=== PATIENT | female | born 1970 | race Caucasian/White ===

== ENCOUNTER 2017-02-26 07:11 | Inpatient (IN) | payer MEDICARE, MEDICAID ==
[~2017-02-26] VITALS: Ht 175.3 cm; Wt 89.0 kg
[2017-02-26 07:12] VITALS: BP 124/57
[2017-02-26] MEDS ORDERED: BENZTROPINE1 MG PO (08:02)
[2017-02-26] MEDS ORDERED: ATIVAN1 MG PO (08:03)
[2017-02-26] MEDS ORDERED: LITHIUM CARBON450 M1 PO (08:03)
[2017-02-26] MEDS ORDERED: OXCARBAZEPINE600 M1 PO (08:06)
[2017-02-26] MEDS ORDERED: OLANZAPINE20 MG PO (08:06)
[2017-02-26] MEDS ORDERED: PERPHENAZINE4 MG PO (08:07)
--- NOTE | 2017-02-26 08:15 | Emergency Room Report ---
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 STAFF THERE AT [facility] STATED THAT PT WAS FOUND ON THE FLOOR, STATES PT GOT HERSELF UP FROM THE FLOOR, STATED PT HAS BEEN MORE CONFUSED THAN NORMAL SINCE INCIDENT. PUPILS ARE EQUAL AND REACTIVE TO LIGHT BUT SLUGGISH. 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 N Clinical Suspician of Infection? N Mental Status: 2 - Mildly Altered Sepsis Risk:LOW SEPSIS RISK Have you (or family members/close friends) recently traveled outside the [place]? N If Yes, where/when: Have you had exposure to infectious disease within the past month? N TB? Other? Specify: Source patient, RN notes reviewed Exam Limitations no limitations Comment Pt brought to the ED from the [facility] where she has been a resident for about 2 years for Bipolar Disorder, Schizo-affective disorder and ? Dementia. This morning she had an unwitnessed fall and brought to the hospital for disorientation and further evaluation. Glucose by EMS=99 and she is not a diabetic Cardiac Chest Pain Chest pain indicative of cardiac No ALLERGIES Coded Allergies: No Known Allergies (02/26/17) Home Medications Reported Medications BENZTROPINE MESYLATE (Benztropine 1MG Tab) 1 MG PO BID [place] Carbonate ([place] Carbonate ER) 450 MG PO BID Lorazepam (Ativan 1MG) 1 MG PO TID Olanzapine (Olanzapine 5MG Tab) 10 MG PO BID Oxcarbazepine 600 MG PO TID Perphenazine 4 MG PO BID History Medical History General CAD? No Angina: No AL: No Hypertension? No Anxiety? Yes Depression? Yes More? 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 Musculoskeletal see HPI Psychiatric/Neurological see HPI Physical Exam Vital Signs Vital Signs Date Time Temp Pulse Resp B/P Pulse O2 O2 Flow FiO2 Ox Delivery Rate 02/26 1133 97.5 69 20 123/54 97 02/26 1101 69 20 109/72 97 02/26 1031 67 20 105/57 97 02/26 0950 79 20 140/70 98 / 0924 98.1 68 20 98/49 100 02/26 0855 95.7 64 20 118/62 99 02/26 0840 68 20 120/91 100 / 0748 61 20 129/77 95 02/26 0712 97.4 58 20 124/57 100 General Appearance no apparent distress, lethargic Eye Exam - bilateral eye PERRL Respiratory Status No: respiratory distress. Lung Sounds bilateral: normal breath sounds. Cardiovascular normal exam, regular rate/rhythm Neurologic confusion and disorientation Medical Decision Making LABS/Meds/Orders Pt receiving controlled substance in ED? No Results/Orders Laboratory Tests 02/26/17 1125: Stl Cyclospora species Pending, Stool Rotavirus (PCR) Pending, Stool Campylobacter PCR Pending, Stool Giardia Lamblia PCR Pending, Stl Norovirus GI/ GII PCR Pending, Adenovirus (PCR) Pending, C. difficile Tox (PCR) Pending, E. coli (PCR) Pending, Yersinia (PCR) Pending 02/26/17 0845: Urine Color DK YELLOW, Urine Appearance CLEAR, Urine pH 5.5, Ur Specific [place] 1.010, Urine Protein TRACE H, Urine Ketones NEGATIVE, Urine Blood NEGATIVE, Urine Nitrate NEGATIVE, Urine Bilirubin NEGATIVE, Urine Urobilinogen 2.0, Ur Leukocyte Esterase TRACE H, Urine RBC OCC, Urine WBC 5-10, Ur Squamous Epith Cells 3-5, Urine Bacteria 2+, Urine Mucus OCC, Urine Glucose NEGATIVE 02/26/17 0825: Lactic Acid 1.2 02/26/17 0825: Sodium 136, Potassium 4.4, Chloride 102, Carbon Dioxide 24, BUN 13, Creatinine 0.7, Estimated Creat Clear 178, Estimated GFR (MDRD) 90, Glucose 118 H, Calcium 8.7, Total Bilirubin 0.3, AST 12 L, ALT 22, Alkaline Phosphatase 100, Total Protein 7.2, Albumin 3.5, Globulin 3.7 H, Albumin/Globulin Ratio 0.9 L, WBC 8.2, RBC 3.91 L, Hgb 12.5, Hct 37.6, MCV 96.0, RDW 12.3, Plt Count 206, MPV 6.2 L, Gran % 85.5 H, Gran # 7.0, Total Counted 100, Lymphocytes % 10.8, Monocytes % 3.6, Eosinophils % 0.1, Basophils % 0.1, Neutrophils 89 H, Lymphocytes ( Manual) 9 L, Lymphocytes # 0.9, Monocytes (Manual) 2, Monocytes # 0.3, Eosinophils # 0.0, Basophils # 0.0, Platelet Estimate NORMAL, PUBS MCHC 33.4, MCH 32.0 H, [place] Pending 02/26/17 0744: POC Glucose 86 Current Medication Orders Sig/Noemi Start time Last Medication Dose Route Stop Time Status Admin Ceftriaxone Sodium 0 .STK-MED ONE 02/26 1146 DC IV Sodium Chloride 50 ML .STK-MED ONE 02/26 1146 DC IV Ceftriaxone Sodium 1 GM ONCE ONE 02/26 1130 DC 02/26 Sodium Chloride 50 ML IV 02/26 1159 1150 Sodium Chloride 1,000 ML .Q1H1M 02/26 1100 DC 02/26 IV 02/26 1200 1054 Sodium Chloride 10 ML PRN PRN 02/26 1100 AC IV 02/27 1050 Sodium Chloride 1,000 ML .STK-MED ONE 02/26 1052 DC IV Sodium Chloride 1,000 ML .Q1H1M 02/26 0815 DC 02/26 IV 02/26 0915 0833 Sodium Chloride 10 ML PRN PRN 02/26 0815 AC IV 02/27 0809 Sodium Chloride 10 ML PRN PRN 02/26 0800 AC IV 02/27 0750 Orders Procedure Date/time Status DIET-NOTHING BY MOUTH 02/26 B Active Decision to admit 02/26 1157 Active DIARRHEA PANEL, PCR 02/26 1120 Active CULTURE, URINE 02/26 0845 Active DIFFERENTIAL-WBC 02/26 0825 Complete CHEST-PORTABLE 02/26 0809 Active LITHIUM 02/26 0809 Active LACTIC ACID 02/26 0809 Complete IV SALINE LOCK 02/26 0750 Active URINALYSIS/COMPLETE 02/26 0750 Complete CBC WITH AUTO DIFF 02/26 0750 Complete CHEM 12 PROFILE 02/26 0750 Complete FINGERSTICK BLOOD SUGAR 02/[address] HEAD W/O CONTRAST 02/[address] HEAD REQ 02/26 0713 Complete Departure Departure Time of Disposition 1201 Disposition Still a Patient Clinical Impression Primary Impression: UTI (urinary tract infection) Qualifiers: Urinary tract infection type: acute cystitis Hematuria presence: without hematuria Qualified Code: N30.00 - Acute cystitis without hematuria Secondary Impressions: Bipolar 1 disorder Confusion Schizoaffective disorder Qualifiers: Schizoaffective disorder type: bipolar Qualified Code: F25.0 - Schizoaffective disorder, bipolar type Condition STABLE Referrals Ana Maria MCHUGH,Camilo Maradiaga (Family) Additional Instructions Admitted to OBS to Dr. Rodgers with Dr. Arnold covering Discharge Counseling Counseled pt/family regarding diagnosis, test results, follow up needs ED Critical Care Critical Care No If Critical Care minutes are documented, the time involved in the performance of seperately reportable procedures was not counted toward critical care time documented. I directly delivered medical care to this critically ill and/or injured patient. Timely evaluation and treatment was necessary to address the significant organ system(s) dysfunction present in this patient. at 1203
--- NOTE | 2017-02-26 08:15 | Emergency Room Report ---
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 STAFF THERE AT [facility] STATED THAT PT WAS FOUND ON THE FLOOR, STATES PT GOT HERSELF UP FROM THE FLOOR, STATED PT HAS BEEN MORE CONFUSED THAN NORMAL SINCE INCIDENT. PUPILS ARE EQUAL AND REACTIVE TO LIGHT BUT SLUGGISH. 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 N Clinical Suspician of Infection? N Mental Status: 2 - Mildly Altered Sepsis Risk:LOW SEPSIS RISK Have you (or family members/close friends) recently traveled outside the [place]? N If Yes, where/when: Have you had exposure to infectious disease within the past month? N TB? Other? Specify: Source patient, RN notes reviewed Exam Limitations no limitations Comment Pt brought to the ED from the [facility] where she has been a resident for about 2 years for Bipolar Disorder, Schizo-affective disorder and ? Dementia. This morning she had an unwitnessed fall and brought to the hospital for disorientation and further evaluation. Glucose by EMS=99 and she is not a diabetic Cardiac Chest Pain Chest pain indicative of cardiac No ALLERGIES Coded Allergies: No Known Allergies (02/26/17) Home Medications Reported Medications BENZTROPINE MESYLATE (Benztropine 1MG Tab) 1 MG PO BID [place] Carbonate ([place] Carbonate ER) 450 MG PO BID Lorazepam (Ativan 1MG) 1 MG PO TID Olanzapine (Olanzapine 5MG Tab) 10 MG PO BID Oxcarbazepine 600 MG PO TID Perphenazine 4 MG PO BID History Medical History General CAD? No Angina: No NH: No Hypertension? No Anxiety? Yes Depression? Yes More? 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 Musculoskeletal see HPI Psychiatric/Neurological see HPI Physical Exam Vital Signs Vital Signs Date Time Temp Pulse Resp B/P Pulse O2 O2 Flow FiO2 Ox Delivery Rate 02/26 1133 97.5 69 20 123/54 97 02/26 1101 69 20 109/72 97 02/26 1031 67 20 105/57 97 02/26 0950 79 20 140/70 98 / 0924 98.1 68 20 98/49 100 02/26 0855 95.7 64 20 118/62 99 02/26 0840 68 20 120/91 100 / 0748 61 20 129/77 95 02/26 0712 97.4 58 20 124/57 100 General Appearance no apparent distress, lethargic Eye Exam - bilateral eye PERRL Respiratory Status No: respiratory distress. Lung Sounds bilateral: normal breath sounds. Cardiovascular normal exam, regular rate/rhythm Neurologic confusion and disorientation Medical Decision Making LABS/Meds/Orders Pt receiving controlled substance in ED? No Results/Orders Laboratory Tests 02/26/17 1125: Stl Cyclospora species Pending, Stool Rotavirus (PCR) Pending, Stool Campylobacter PCR Pending, Stool Giardia Lamblia PCR Pending, Stl Norovirus GI/ GII PCR Pending, Adenovirus (PCR) Pending, C. difficile Tox (PCR) Pending, E. coli (PCR) Pending, Yersinia (PCR) Pending 02/26/17 0845: Urine Color DK YELLOW, Urine Appearance CLEAR, Urine pH 5.5, Ur Specific [place] 1.010, Urine Protein TRACE H, Urine Ketones NEGATIVE, Urine Blood NEGATIVE, Urine Nitrate NEGATIVE, Urine Bilirubin NEGATIVE, Urine Urobilinogen 2.0, Ur Leukocyte Esterase TRACE H, Urine RBC OCC, Urine WBC 5-10, Ur Squamous Epith Cells 3-5, Urine Bacteria 2+, Urine Mucus OCC, Urine Glucose NEGATIVE 02/26/17 0825: Lactic Acid 1.2 02/26/17 0825: Sodium 136, Potassium 4.4, Chloride 102, Carbon Dioxide 24, BUN 13, Creatinine 0.7, Estimated Creat Clear 178, Estimated GFR (MDRD) 90, Glucose 118 H, Calcium 8.7, Total Bilirubin 0.3, AST 12 L, ALT 22, Alkaline Phosphatase 100, Total Protein 7.2, Albumin 3.5, Globulin 3.7 H, Albumin/Globulin Ratio 0.9 L, WBC 8.2, RBC 3.91 L, Hgb 12.5, Hct 37.6, MCV 96.0, RDW 12.3, Plt Count 206, MPV 6.2 L, Gran % 85.5 H, Gran # 7.0, Total Counted 100, Lymphocytes % 10.8, Monocytes % 3.6, Eosinophils % 0.1, Basophils % 0.1, Neutrophils 89 H, Lymphocytes ( Manual) 9 L, Lymphocytes # 0.9, Monocytes (Manual) 2, Monocytes # 0.3, Eosinophils # 0.0, Basophils # 0.0, Platelet Estimate NORMAL, PUBS MCHC 33.4, MCH 32.0 H, [place] Pending 02/26/17 0744: POC Glucose 86 Current Medication Orders Sig/Noemi Start time Last Medication Dose Route Stop Time Status Admin Ceftriaxone Sodium 0 .STK-MED ONE 02/26 1146 DC IV Sodium Chloride 50 ML .STK-MED ONE 02/26 1146 DC IV Ceftriaxone Sodium 1 GM ONCE ONE 02/26 1130 DC 02/26 Sodium Chloride 50 ML IV 02/26 1159 1150 Sodium Chloride 1,000 ML .Q1H1M 02/26 1100 DC 02/26 IV 02/26 1200 1054 Sodium Chloride 10 ML PRN PRN 02/26 1100 AC IV 02/27 1050 Sodium Chloride 1,000 ML .STK-MED ONE 02/26 1052 DC IV Sodium Chloride 1,000 ML .Q1H1M 02/26 0815 DC 02/26 IV 02/26 0915 0833 Sodium Chloride 10 ML PRN PRN 02/26 0815 AC IV 02/27 0809 Sodium Chloride 10 ML PRN PRN 02/26 0800 AC IV 02/27 0750 Orders Procedure Date/time Status DIET-NOTHING BY MOUTH 02/26 B Active Decision to admit 02/26 1157 Active DIARRHEA PANEL, PCR 02/26 1120 Active CULTURE, URINE 02/26 0845 Active DIFFERENTIAL-WBC 02/26 0825 Complete CHEST-PORTABLE 02/26 0809 Active LITHIUM 02/26 0809 Active LACTIC ACID 02/26 0809 Complete IV SALINE LOCK 02/26 0750 Active URINALYSIS/COMPLETE 02/26 0750 Complete CBC WITH AUTO DIFF 02/26 0750 Complete CHEM 12 PROFILE 02/26 0750 Complete FINGERSTICK BLOOD SUGAR 02/[address] HEAD W/O CONTRAST 02/[address] HEAD REQ 02/26 0713 Complete Departure Departure Time of Disposition 1201 Disposition Still a Patient Clinical Impression Primary Impression: UTI (urinary tract infection) Qualifiers: Urinary tract infection type: acute cystitis Hematuria presence: without hematuria Qualified Code: N30.00 - Acute cystitis without hematuria Secondary Impressions: Bipolar 1 disorder Confusion Schizoaffective disorder Qualifiers: Schizoaffective disorder type: bipolar Qualified Code: F25.0 - Schizoaffective disorder, bipolar type Condition STABLE Referrals Ana Maria MCHUGH,Camilo Maradiaga (Family) Additional Instructions Admitted to OBS to Dr. Rodgers with Dr. Arnold covering Discharge Counseling Counseled pt/family regarding diagnosis, test results, follow up needs ED Critical Care Critical Care No If Critical Care minutes are documented, the time involved in the performance of seperately reportable procedures was not counted toward critical care time documented. I directly delivered medical care to this critically ill and/or injured patient. Timely evaluation and treatment was necessary to address the significant organ system(s) dysfunction present in this patient. at 1203
[2017-02-26 08:32] LABS: HEMOGLOBIN 12.5 g/dL (12.2-16.2); LYMPH # 0.9 K/mm3 (0.7-4.5); LYMPH % 10.8 % (10-50.0)
[2017-02-26 08:55] LABS: NEUTROPHILS 89 % (42-76)
[2017-02-26 09:01] LABS: URINE BILIRUBIN - DIPSTICK NEGATIVE (NEG); URINE BLOOD NEGATIVE (NEG)
[2017-02-26 11:31] LABS: AEROMONAS NOT DETECTED (NOT DETECTE); ASTROVIRUS NOT DETECTED (NOT DETECTE); CYCLOSPORA CAYETANENSIS NOT DETECTED (NOT DETECTE); E COLI O157 NOT DETECTED (NOT DETECTE); ENTEROAGGREGATIVE E COLI NOT DETECTED (NOT DETECTE); ENTEROPATHOGENIC E COLI NOT DETECTED (NOT DETECTE); ENTEROTOXIGENIC E COLI NOT DETECTED (NOT DETECTE); NOROVIRUS NOT DETECTED (NOT DETECTE); SAPOVIRUS NOT DETECTED (NOT DETECTE); SHIGA-LIKE TOXIN PROD. E COLI NOT DETECTED (NOT DETECTE); SHIGELLA/ENTEROINVASIVE E COLI NOT DETECTED (NOT DETECTE); VIBRIO CHOLERAE NOT DETECTED (NOT DETECTE)
--- NOTE | 2017-02-26 13:57 | PHARMACY CLINIC NOTE ---
Patient Demographics Patient Demographics Admission date: 02/26/17 Date: 02/26/17 Time: 1356 Allergies Coded Allergies: No Known Allergies (02/26/17) HEIGHT- FT: 5 IN: 9.00 K.400 VTE General Information Labs: Laboratory Tests 02/26 0825 Hematology Hgb (12.2 - 16.2 g/dL) 12.5 Hct (37.0 - 47.0 %) 37.6 Plt Count (142 - 424 K/mm3) 206 Disclaimer The following section includes nursing documentation that has been pulled in for pharmacy review. VTE prophylaxis [id number] VTE prophylaxis ordered? Yes Type of prophylaxis/treatment: JUAREZ at 2030
--- NOTE | 2017-02-26 14:13 | RADIOLOGY REPORT PS360 ---
CT HEAD W/O CONTRAST COMPARISON: None HISTORY: Unwitnessed fall now having mental confusion TECHNIQUE: Multiple axial scans obtained from base skull to the vertex and were performed without IV contrast. FINDINGS: The base of skull is normal except for minimal mucoperiosteal thickening left maxillary sinus. Mastoids are clear. The ventricular system is normal. There is no definite ischemic infarct or bleed and there are no extra-axial fluid collections. There is only mild cortical atrophy. Bony calvarium appears intact showing evidence of hyperostosis frontalis interna. IMPRESSION: Negative for acute intracranial pathology
--- NOTE | 2017-02-26 14:14 | RADIOLOGY REPORT PS360 ---
CHEST-PORTABLE COMPARISON: None HISTORY: Shortness of breath TECHNIQUE: Portable upright chest FINDINGS: The support structure effort resulting in crowding the vascular markings at the lung bases. There is mild generalized cardio megaly. There is no definite pneumonic infiltrate seen and there is no pleural fluid. IMPRESSION: Poor aspiration with mild generalized cardio megaly, no definite acute chest pathology seen
[2017-02-26 14:42] VITALS: BP 120/62
[2017-02-26 15:43] VITALS: BP 118/78
[2017-02-26 16:00] VITALS: BP 134/70
[2017-02-26 19:23] VITALS: BP 106/60
[2017-02-26 23:29] VITALS: BP 117/75
[2017-02-27] VITALS (7 sets, daily range): BP systolic 99–144; BP diastolic 47–68
[2017-02-27 06:45] LABS: HEMOGLOBIN 11.4 g/dL (12.2-16.2); LYMPH # 0.8 K/mm3 (0.7-4.5); LYMPH % 11.5 % (10-50.0)
--- NOTE | 2017-02-27 09:18 | HISTORY AND PHYSICAL REPORT ---
History and Physical (FCA) Date of admission: 02/26/17 Chief complaint: Ms Rodriguez is a 46 year old female who is a resident of the [facility] with a history of Schizophrenia who experienced an unwitnessed fall and was disoriented. She was brought to [facility] via ambulance for for further evaluation. She was then admitted with confusion and UTI. This AM patient is unable to relate most of the events of yesterday. She states she did fall but does not know what made her fall. She denies CP and SOB. She does not recall being sick. Past Medical History: Medical History: CAD? No Angina: No PA: No Hypertension? No Hyperlipidemia? No CHF? No DVT? No PE? No COPD? No Asthma? No Anemia? No GERD? No Gastric ulcers? No GI Bleed? No Hernia? No Thyroid Problems? No Hypothyroidism? No CVA? No Seizures? No Diabetes? No Renal Insuffiency? No UTI? Yes Stones? No BPH? No GB Disease: No Nephritic Syndrome? No Asplenia? No Hepatitis? No Sickle Cell Disease? No Arthritis? No Migraines? No Cataracts? No Glaucoma? No MRSA? No HIV? No TB? No Anxiety? Yes Depression? Yes Cancer? No More? Yes Additional hx: BIPOLAR SCHIZOAFFECTIVE, SUBSTANCE ABUSE ALCOHOL ABUSE, MAJOR DEPRESSION, DEMENTIA WITH DELIRIUM Surgical history: Previous Surgery?Y "STERILIZATION" Medications: Reported Medications BENZTROPINE MESYLATE (Benztropine 1MG Tab) 1 MG PO BID [place] Carbonate ([place] Carbonate ER) 450 MG PO BID Lorazepam (Ativan 1MG) 1 MG PO TID Olanzapine 10 MG PO BID Oxcarbazepine 600 MG PO TID Perphenazine 4 MG PO BID Allergies: Coded Allergies: No Known Allergies (02/26/17) Family History: Family history: Postive for: unknown. Social History: Smoking Hx Tobacco: No Smoker: Former Smoker Type: Cigarettes Packs/day: < 1 Pack Are you exposed to second hand Yes Alcohol: Alcohol: No Hx of Drug Use: Drug Use? No Review of Systems: ENT No: sore throat. Cardiovascular No: chest pain, edema. Respiratory No: shortness of air, non-productive. GI No: abdominal pain, diarrhea, hematochezia, nausea, vomitting. (female) No: hematuria. Musculoskeletal No: extremity pain, joint pain. Psychiatric Positive for: confused, depression, change in mental status. Physical Exam: Vital signs: 1ST Vital Signs Result Date Time Pulse Ox 100 02/27 712 B/P 124/57 02/27 712 Temp 97.4 02/26 07 Pulse 58 02/26 07 Resp 20 02/26 07 O2 Delivery ROOM AIR 02/26 1442 Exam: General appearance: alert, active, no acute distress, speech is clear Eyes: anicteric ENT: mucous membranes moist Cardiovascular: regular rate & rhythm Respiratory: crackles on the right ABD: non-distended, soft, no tenderness, bowel sounds present Extremities: no peripheral edema, no calf tenderness Lab data: Labs: Laboratory Tests 02/27/17 0605: Sodium 136, Potassium 3.8, Chloride 105, Carbon Dioxide 23, BUN 7, Creatinine 0.6, Estimated Creat Clear 163, Estimated GFR (MDRD) 107, Glucose 107 H, Calcium 8.4 L, WBC 7.4, RBC 3.59 L, Hgb 11.4 L, Hct 34.2 L, MCV 95.1, RDW 12.3, Plt Count 219, MPV 6.0 L, Gran % 82.6 H, Gran # 6.1, Lymphocytes % 11.5, Monocytes % 5.6, Eosinophils % 0.3, Basophils % 0.1, Lymphocytes # 0.8, Monocytes # 0.4, Eosinophils # 0.0, Basophils # 0.0, PUBS MCHC 33.5, MCH 31.8 H 02/26/17 1125: Stl Cyclospora species NOT DETECTED, Stool Rotavirus (PCR) NOT DETECTED, Stool Campylobacter PCR NOT DETECTED, Stool Giardia Lamblia PCR NOT DETECTED, Stl Norovirus GI/GII PCR NOT DETECTED, Adenovirus (PCR) NOT DETECTED, C. difficile Tox (PCR) DETECTED H, E. coli (PCR) NOT DETECTED, Yersinia (PCR) NOT DETECTED Radiology results: Results: 02/26/17 CT of head IMPRESSION: Negative for acute intracranial pathology 02/26/17 CXR IMPRESSION: Poor aspiration with mild generalized cardio megaly, no definite acute chest pathology seen Diagnosis(es): 1. Schizoaffective disorder 2. UTI (urinary tract infection) 3. Confusion 4. Clostridium difficile colitis Plan: As per orders; continue with ABX; regular meds have been ordered (Noreen Erwin APRN) Date of admission: 02/26/17 Diagnosis(es): 1. Schizoaffective disorder 2. UTI (urinary tract infection) 3. Confusion 4. Clostridium difficile colitis Plan: Pt seen and examined. Concur with above assessment and plan. (Camilo Rodgers MD) at 0922 at [id number]
--- NOTE | 2017-02-27 09:18 | HISTORY AND PHYSICAL REPORT ---
History and Physical (FCA) Date of admission: 02/26/17 Chief complaint: Ms Rodriguez is a 46 year old female who is a resident of the [facility] with a history of Schizophrenia who experienced an unwitnessed fall and was disoriented. She was brought to [facility] via ambulance for for further evaluation. She was then admitted with confusion and UTI. This AM patient is unable to relate most of the events of yesterday. She states she did fall but does not know what made her fall. She denies CP and SOB. She does not recall being sick. Past Medical History: Medical History: CAD? No Angina: No AK: No Hypertension? No Hyperlipidemia? No CHF? No DVT? No PE? No COPD? No Asthma? No Anemia? No GERD? No Gastric ulcers? No GI Bleed? No Hernia? No Thyroid Problems? No Hypothyroidism? No CVA? No Seizures? No Diabetes? No Renal Insuffiency? No UTI? Yes Stones? No BPH? No GB Disease: No Nephritic Syndrome? No Asplenia? No Hepatitis? No Sickle Cell Disease? No Arthritis? No Migraines? No Cataracts? No Glaucoma? No MRSA? No HIV? No TB? No Anxiety? Yes Depression? Yes Cancer? No More? Yes Additional hx: BIPOLAR SCHIZOAFFECTIVE, SUBSTANCE ABUSE ALCOHOL ABUSE, MAJOR DEPRESSION, DEMENTIA WITH DELIRIUM Surgical history: Previous Surgery?Y "STERILIZATION" Medications: Reported Medications BENZTROPINE MESYLATE (Benztropine 1MG Tab) 1 MG PO BID [place] Carbonate ([place]an Carbonate ER) 450 MG PO BID Lorazepam (Ativan 1MG) 1 MG PO TID Olanzapine 10 MG PO BID Oxcarbazepine 600 MG PO TID Perphenazine 4 MG PO BID Allergies: Coded Allergies: No Known Allergies (02/26/17) Family History: Family history: Postive for: unknown. Social History: Smoking Hx Tobacco: No Smoker: Former Smoker Type: Cigarettes Packs/day: < 1 Pack Are you exposed to second hand Yes Alcohol: Alcohol: No Hx of Drug Use: Drug Use? No Review of Systems: ENT No: sore throat. Cardiovascular No: chest pain, edema. Respiratory No: shortness of air, non-productive. GI No: abdominal pain, diarrhea, hematochezia, nausea, vomitting. (female) No: hematuria. Musculoskeletal No: extremity pain, joint pain. Psychiatric Positive for: confused, depression, change in mental status. Physical Exam: Vital signs: 1ST Vital Signs Result Date Time Pulse Ox 100 02/27 712 B/P 124/57 02/27 712 Temp 97.4 02/26 07 Pulse 58 02/26 07 Resp 20 02/26 07 O2 Delivery ROOM AIR 02/26 1442 Exam: General appearance: alert, active, no acute distress, speech is clear Eyes: anicteric ENT: mucous membranes moist Cardiovascular: regular rate & rhythm Respiratory: crackles on the right ABD: non-distended, soft, no tenderness, bowel sounds present Extremities: no peripheral edema, no calf tenderness Lab data: Labs: Laboratory Tests 02/27/17 0605: Sodium 136, Potassium 3.8, Chloride 105, Carbon Dioxide 23, BUN 7, Creatinine 0.6, Estimated Creat Clear 163, Estimated GFR (MDRD) 107, Glucose 107 H, Calcium 8.4 L, WBC 7.4, RBC 3.59 L, Hgb 11.4 L, Hct 34.2 L, MCV 95.1, RDW 12.3, Plt Count 219, MPV 6.0 L, Gran % 82.6 H, Gran # 6.1, Lymphocytes % 11.5, Monocytes % 5.6, Eosinophils % 0.3, Basophils % 0.1, Lymphocytes # 0.8, Monocytes # 0.4, Eosinophils # 0.0, Basophils # 0.0, PUBS MCHC 33.5, MCH 31.8 H 02/26/17 1125: Stl Cyclospora species NOT DETECTED, Stool Rotavirus (PCR) NOT DETECTED, Stool Campylobacter PCR NOT DETECTED, Stool Giardia Lamblia PCR NOT DETECTED, Stl Norovirus GI/GII PCR NOT DETECTED, Adenovirus (PCR) NOT DETECTED, C. difficile Tox (PCR) DETECTED H, E. coli (PCR) NOT DETECTED, Yersinia (PCR) NOT DETECTED Radiology results: Results: 02/26/17 CT of head IMPRESSION: Negative for acute intracranial pathology 02/26/17 CXR IMPRESSION: Poor aspiration with mild generalized cardio megaly, no definite acute chest pathology seen Diagnosis(es): 1. Schizoaffective disorder 2. UTI (urinary tract infection) 3. Confusion 4. Clostridium difficile colitis Plan: As per orders; continue with ABX; regular meds have been ordered (Noreen Erwin APRN) Date of admission: 02/26/17 Diagnosis(es): 1. Schizoaffective disorder 2. UTI (urinary tract infection) 3. Confusion 4. Clostridium difficile colitis Plan: Pt seen and examined. Concur with above assessment and plan. (Camilo Rodgers MD) at 0922 at [phone]
--- NOTE | 2017-02-27 16:18 | RADIOLOGY REPORT PS360 ---
CHEST(2 VIEWS-NOT PORTABLE) Ordering Physician: Camilo Rodgers MD Patient Age: 46 years: Female HISTORY: SOAshort of breath. Dyspnea.. TECHNIQUE: 2 view chest radiograph Patient had difficulty following instructions. Difficult exam FINDINGS Today's study is compared to 02/26/2017. The lungs appear better expanded and clear today than on yesterday's exam. No focal pneumonia. Question some mild central airway inflammatory changes with slight coarsening of central markings. No pleural effusion. No pneumothorax. Heart appears upper normal in size. The lamonte and mediastinal structures unremarkable. IMPRESSION: . No focal pneumonia. Nothing definitely acute Better inspiration than yesterday's study. . Central markings upper normal likely reflecting chronic changes
[2017-02-28] VITALS (7 sets, daily range): BP systolic 99–136; BP diastolic 56–78
--- NOTE | 2017-02-28 08:02 | ACUTE CARE PROGRESS NOTE (QUA) ---
Progress Notes Subjective Date 02/28/17 Time 0753 Note per nursing: period of poor response yesterday; afternoon meds held; was her usual self last night; low BP noted. Several stools yesterday and one during the night; initially incontinent but then also goes to the bathroom. Denies abdominal pain; eating and drinking without problems. Patient denies pain and SOB; she thinks she is having less stools; discusses the personal shelter Objective Findings Vital Signs Date Time Temp Pulse Resp B/P Pulse O2 O2 Flow FiO2 Ox Delivery Rate 02/28 0744 97.9 79 20 119/74 98 ROOM AIR 02/28 0528 97.7 57 20 130/77 100 ROOM AIR 02/28 0026 97.7 64 20 99/63 99 ROOM AIR 02/27 2054 98.0 59 20 123/63 100 02/27 2049 20 02/27 1936 98.0 59 20 123/63 100 ROOM AIR 02/27 1642 98.0 71 20 144/58 97 ROOM AIR 02/27 1213 97.1 69 20 119/68 98 ROOM AIR 02/27 0901 97.4 75 20 103/51 99 02/27 0857 20 02/27 0844 97.4 75 20 103/51 99 Current Medications Lorazepam 0 .STK-MED ONE .ROUTE (DC) Ceftriaxone Sodium 1 GM DAILY IV Sodium Chloride 50 ML Lorazepam 0 .STK-MED ONE .ROUTE (DC) Metronidazole 250 MG TID PO [place] Carbonate 300 MG TID PO Lorazepam 1 MG TID PO Oxcarbazepine 600 MG TID PO Sodium Chloride 10 ML PRN PRN IV Perphenazine 4 MG BID PO Olanzapine 10 MG BID PO Acetaminophen 650 MG Q4HP PRN PO Benztropine Mesylate 1 MG BID PO Ibuprofen 600 MG Q8HP PRN PO Nicotine 21 MG DAILYP PRN TD Ondansetron HCl 4 MG Q6HP PRN IV Promethazine HCl 25 MG Q4HP PRN IV Sodium Chloride 1,000 ML .Q8H IV Sodium Chloride 25 ML PRN PRN IV Sodium Chloride 10 ML PRN PRN IV (DC) 02/27 1500 02/27 2300 02/28 0700 Intake Total 420 1730 1922 Output Total Balance 420 1730 1922 Intake, IV 1550 1082 Intake, Oral 420 180 840 Output, Stool Patient 196 lb Weight Last VS-Temp:97.9 B/P:119/74 Pulse:79 Resp:20 SaO2:98 ROOM AIR Last weight lbs:196 oz:3 K.990 Method:Bed Scales Exam General appearance: alert, active, no acute distress Cardiovascular: regular rate & rhythm, monitor showing SR with occasional PVC Respiratory: clear to auscultation (bilat anterior and posterior) ABD: soft, no tenderness, bowel sounds present Extremities: no peripheral edema, no calf tenderness Neuro: alert, speech clear, seems partially oriented; has to be redirected with conversation Assessment/Plan Problem List 1. Schizoaffective disorder 2. UTI (urinary tract infection) 3. Confusion 4. Clostridium difficile colitis Patient condition Improving Plan: continue current care, saline lock; will discuss meds with Dr. Rodgers with reference to the hypotension and AMS yesterday This inpt stay is expected to cross 2 MNs from start of care Yes (Noreen Erwin APRN) Subjective Date 02/28/17 Time 0838 Assessment/Plan Problem List 1. Schizoaffective disorder 2. UTI (urinary tract infection) 3. Confusion 4. Clostridium difficile colitis 5. Cardiomegaly Plan: Pt seen and examined. No further spells of unresponsiveness since yesterday afternoon. VSS. Will check echo due to cardiomegaly noted on CXR. (Camilo Rodgers MD) at 0802 at 0839
--- NOTE | 2017-02-28 15:05 | RADIOLOGY REPORT PS360 ---
PROCEDURE: 2-D M-mode and color Doppler study INDICATIONS FOR THE TEST: Chest pain COPD Heart Murmur Tobacco SmokingEX Palpitations Fatigue Syncope Edema Hypertension Diabetes Mellitus Rheumatic Fever SOB MONTES Obesity Hyperlipidemia Family History HD Additional History ALTERED MENTAL STATUS,HYPOTENSION PATIENT INFORMATION HEIGHT: 69 WEIGHT:196 GENDER: Female B/P:124/57 2-D/M-MODE INTERPRETATION: 2-D MEASUREMENTS OBSERVED VALUES IN CMS Right Ventricular Dimension (RVDd) 1.3 Interventricular Septum (Thickness)(IVsd) 1.5 Left Ventricular Internal Dimensions(LVIDd) 3.9 Left Ventricular Posterior Wall (Thickness)(LVPWd) 1.4 Aortic Root 2.1 Aortic Cusp Separation 2.1 Left Atrial Dimensions (LAD) 4.0 2D 1. Left atrium is mildly enlarged, left ventricle is normal size, there is mild concentric left ventricular hypertrophy, visually estimated ejection fraction 55% with no obvious regional wall motion abnormality. 2. The right atrium and right ventricle are normal size and contractility. 3. The aortic valve is minimally thickened and fibrosed. 4. The mitral and tricuspid valve is structurally normal. 5. The pulmonic valve is not well visualized. 6. No significant pericardial effusion noted. DOPPLER INTERROGATION: Doppler interrogation of the aortic mitral and tricuspid presence of mild mitral and tricuspid regurgitation, tricuspid regurgitant jet velocity insufficient for calculation of the right ventricular systolic pressure. Diastolic parameters are inconclusive. CONCLUSION: 1. Normal left ventricular size, mild concentric left ventricular hypertrophy, visually estimated to fraction 55% with no obvious regional wall motion abnormality. 2. Mild mitral and tricuspid regurgitation. 3. No significant pericardial effusion noted.
[2017-03-01 04:00] VITALS: BP 110/70
[2017-03-01 07:46] VITALS: BP 104/70
--- NOTE | 2017-03-01 08:06 | ACUTE CARE PROGRESS NOTE (QUA) ---
Progress Notes Subjective Date 03/01/17 Time 0756 Note Awakened for exam. Denies any problems. States her bowels have not moved. Up to the bathroom to void several times. Eating without problems. per nursing: no further known stools; patient does go to bathroom independently Objective Findings Vital Signs Date Time Temp Pulse Resp B/P Pulse O2 O2 Flow FiO2 Ox Delivery Rate 03/01 0746 98.1 58 18 104/70 98 ROOM AIR 03/01 0400 98.0 58 20 110/70 100 ROOM AIR 02/28 2107 20 02/28 2054 97.6 60 20 112/56 100 02/28 1931 97.6 60 20 112/56 100 ROOM AIR 02/28 1615 98.3 58 20 136/78 100 ROOM AIR 02/28 1330 20 02/28 0925 20 02/28 0918 97.9 79 20 119/74 98 Current Medications Lorazepam 0 .STK-MED ONE .ROUTE (DC) Lorazepam 0 .STK-MED ONE .ROUTE (DC) Lorazepam 0 .STK-MED ONE .ROUTE (DC) Sodium Chloride 10 ML PRN PRN IV Ceftriaxone Sodium 1 GM DAILY IV Sodium Chloride 50 ML Metronidazole 250 MG TID PO [place] Carbonate 300 MG TID PO Lorazepam 1 MG TID PO Oxcarbazepine 600 MG TID PO Sodium Chloride 10 ML PRN PRN IV Perphenazine 4 MG BID PO Olanzapine 10 MG BID PO Acetaminophen 650 MG Q4HP PRN PO Benztropine Mesylate 1 MG BID PO Ibuprofen 600 MG Q8HP PRN PO Nicotine 21 MG DAILYP PRN TD Ondansetron HCl 4 MG Q6HP PRN IV Promethazine HCl 25 MG Q4HP PRN IV Sodium Chloride 1,000 ML .Q8H IV (DC) Sodium Chloride 25 ML PRN PRN IV 02/28 1500 02/28 2300 03/01 0700 Intake Total 600 1440 Output Total Balance 600 1440 Intake, Oral 600 1440 Last VS-Temp:98.1 B/P:104/70 Pulse:58 Resp:18 SaO2:98 ROOM AIR Last weight lbs:196 oz:3 K.990 Method:Bed Scales ECHO 02/28/19 CONCLUSION: 1. Normal left ventricular size, mild concentric left ventricular hypertrophy, visually estimated to fraction 55% with no obvious regional wall motion abnormality. 2. Mild mitral and tricuspid regurgitation. 3. No significant pericardial effusion noted. Exam General appearance: alert, no acute distress, easily awakened for exam Cardiovascular: regular rate & rhythm, frequent premature beats Respiratory: clear to auscultation (bilat anterior and posterior) ABD: non-distended, soft, no tenderness, bowel sounds present Extremities: no peripheral edema Neuro: alert Assessment/Plan Problem List 1. Schizoaffective disorder 2. UTI (urinary tract infection) 3. Confusion 4. Clostridium difficile colitis 5. Cardiomegaly Patient condition Improved Plan: Probably back to [facility] today. Will continue with Flagyl This inpt stay is expected to cross 2 MNs from start of care No (Noreen Erwin APRN) Subjective Date 03/01/17 Time 0858 Assessment/Plan Problem List 1. Schizoaffective disorder 2. UTI (urinary tract infection) 3. Confusion 4. Clostridium difficile colitis 5. Cardiomegaly Plan: Pt seen and examined. Echo looks good. Urine culture with no growth. Will discharge to [facility] on Flagyl. (Camilo Rodgers MD) at 0805 at 0900
[2017-03-01 08:34] VITALS: BP 104/70
[2017-03-01] MEDS ORDERED: FLAGYL500 M1 PO (09:03)
[2017-03-01 15:34] VITALS: BP 104/70
--- NOTE | 2017-03-02 14:48 | DISCHARGE SUMMARY STANDARD ---
Discharge Summary (FCA2) Date of admission: 02/26/17 Date of discharge: 03/01/17 Problem List: 1. Schizoaffective disorder 2. UTI (urinary tract infection) 3. Confusion 4. Clostridium difficile colitis 5. Cardiomegaly History of present illness: Ms Rodriguez is a 46 year old female who is a resident of the [facility] with a history of Schizophrenia. She experienced an unwitnessed fall and was disoriented. She was brought to [facility] via ambulance for for further evaluation. She was then admitted with confusion and UTI. She was unable to relate most of the events. She stated she did fall but did not know what made her fall. She denied CP and SOB. She did not recall being sick. Exam on admission: General appearance: alert, active, no acute distress, speech is clear Eyes: anicteric ENT: mucous membranes moist Cardiovascular: regular rate & rhythm Respiratory: crackles on the right ABD: non-distended, soft, no tenderness, bowel sounds present Extremities: no peripheral edema, no calf tenderness Hospital Course: She was started on rocephin. A CXR and CT of the head both showed nothing acute. Her CXR did show some cardiomegaly, therefore an echo was ordered. It showed mild LVH and an EF of 55% with mild mitral and tricuspid regurgitation. She did have some loose stools and a stool test came back positive for C. Diff. She was started on flagyl. Her urine cx showed no growth and she was stable to be discharged back to the [facility] on flagyl. Discharge medications: Continue taking these medications: BENZTROPINE MESYLATE (Benztropine 1MG Tab) 1 MG TABLET 1 MILLIGRAM ORAL TWICE A DAY [place] Carbonate (Laurium Carbonate ER) 450 MG TABLET.ER 450 MILLIGRAM ORAL TWICE A DAY Lorazepam (Ativan 1MG) 1 MG TABLET 1 MILLIGRAM ORAL THREE TIMES A DAY Olanzapine (Olanzapine) 20 MG TABLET 10 MILLIGRAM ORAL TWICE A DAY Oxcarbazepine (Oxcarbazepine) 600 MG TABLET 600 MILLIGRAM ORAL THREE TIMES A DAY Perphenazine (Perphenazine) 4 MG TABLET 4 MILLIGRAM ORAL TWICE A DAY Start taking the following new medications: Metronidazole (Flagyl) 500 MG TABLET 500 MILLIGRAM ORAL THREE TIMES A DAY Qty = 24 No Refills Disposition: F/U with: Camilo Rodgers MD Follow up: 7 DAYS Activity: Cont Current activity Diet: Continue same diet Discharge to: PERSONAL HALFWAY Specify Personal Mcfp: [facility] at 0074
--- NOTE | 2017-03-02 14:48 | DISCHARGE SUMMARY STANDARD ---
Discharge Summary (FCA2) Date of admission: 02/26/17 Date of discharge: 03/01/17 Problem List: 1. Schizoaffective disorder 2. UTI (urinary tract infection) 3. Confusion 4. Clostridium difficile colitis 5. Cardiomegaly History of present illness: Ms Rodriguez is a 46 year old female who is a resident of the [facility] with a history of Schizophrenia. She experienced an unwitnessed fall and was disoriented. She was brought to [facility] via ambulance for for further evaluation. She was then admitted with confusion and UTI. She was unable to relate most of the events. She stated she did fall but did not know what made her fall. She denied CP and SOB. She did not recall being sick. Exam on admission: General appearance: alert, active, no acute distress, speech is clear Eyes: anicteric ENT: mucous membranes moist Cardiovascular: regular rate & rhythm Respiratory: crackles on the right ABD: non-distended, soft, no tenderness, bowel sounds present Extremities: no peripheral edema, no calf tenderness Hospital Course: She was started on rocephin. A CXR and CT of the head both showed nothing acute. Her CXR did show some cardiomegaly, therefore an echo was ordered. It showed mild LVH and an EF of 55% with mild mitral and tricuspid regurgitation. She did have some loose stools and a stool test came back positive for C. Diff. She was started on flagyl. Her urine cx showed no growth and she was stable to be discharged back to the [facility] on flagyl. Discharge medications: Continue taking these medications: BENZTROPINE MESYLATE (Benztropine 1MG Tab) 1 MG TABLET 1 MILLIGRAM ORAL TWICE A DAY [place] Carbonate ([place] Carbonate ER) 450 MG TABLET.ER 450 MILLIGRAM ORAL TWICE A DAY Lorazepam (Ativan 1MG) 1 MG TABLET 1 MILLIGRAM ORAL THREE TIMES A DAY Olanzapine (Olanzapine) 20 MG TABLET 10 MILLIGRAM ORAL TWICE A DAY Oxcarbazepine (Oxcarbazepine) 600 MG TABLET 600 MILLIGRAM ORAL THREE TIMES A DAY Perphenazine (Perphenazine) 4 MG TABLET 4 MILLIGRAM ORAL TWICE A DAY Start taking the following new medications: Metronidazole (Flagyl) 500 MG TABLET 500 MILLIGRAM ORAL THREE TIMES A DAY Qty = 24 No Refills Disposition: F/U with: Camilo Rodgers MD Follow up: 7 DAYS Activity: Cont Current activity Diet: Continue same diet Discharge to: PERSONAL ALF Specify Personal Shelter: [facility] at [phone]
== END 2017-03-01 15:28 | disposition home or self-care (01) | DRG 690 ==
LOC: ER 07:11 → 2ND 12:18 → ER 12:18 → 2ND 12:49
PROVIDERS: Emergency Medicine; General Practice
DX: N39.0 Urinary tract infection, site not specified (principal); A04.7 Enterocolitis due to Clostridium difficile; Z91.81 History of falling; Z87.891 Personal history of nicotine dependence; I51.7 Cardiomegaly; F25.0 Schizoaffective disorder, bipolar type

== ENCOUNTER 2017-10-21 12:49 | Emergency (ER) | payer MEDICAID ==
[~2017-10-21] VITALS: Ht 175.3 cm; Wt 88.9 kg
[~2017-10-21 12:49] MED LIST: ATIVAN1 MG PO; BENZTROPINE1 MG PO; FLAGYL500 M1 PO; LITHIUM CARBON450 M1 PO; OLANZAPINE20 MG PO; OXCARBAZEPINE600 M1 PO; PERPHENAZINE4 MG PO
--- NOTE | 2017-10-21 12:55 | Emergency Room Report ---
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 N Clinical Suspician of Infection? N Mental Status: 1 - Regular (Normal Baseline) Sepsis Risk:Low Sepsis Risk Have you (or family members/close friends) recently traveled outside the [place]? N If Yes, where/when: Have you had exposure to infectious disease within the past month? N TB? Other? Specify: Patient felt lightheaded and unwell today. Is in personal custodial. Has schizophrenia and bipolar, taking multiple medications, states she had a large BM on arrival and now feeling better and wants something to eat and something to drink. No fever. No chest pain. No new hallucinations. No palpitations. ALLERGIES Coded Allergies: No Known Allergies (02/26/17) Home Medications Reported Medications BENZTROPINE MESYLATE (Benztropine 1MG Tab) 1 MG PO BID Lorazepam (Ativan 1MG) 1 MG PO TID Olanzapine 10 MG PO BID Perphenazine 4 MG PO BID [place] Carbonate ([place] Carbonate ER) 450 MG PO QHS [place] Carbonate 300 MG PO DAILY Oxcarbazepine 300 MG PO TID Haloperidol (Haloperidol 5MG. Tablet) 5 MG PO TID History Medical History General CAD? No Angina: No [place]: No Hypertension? No Hyperlipidemia? No CHF? No DVT? No PE? No COPD? No Asthma? No Anemia? No GERD? No Gastric ulcers? No GI Bleed? No Hernia? No Thyroid Problems? No Hypothyroidism? No CVA? No Seizures? No Diabetes? No Renal Insuffiency? No End Stage Renal Disease? No UTI? Yes Stones? No BPH? No GB Disease: No Nephritic Syndrome? No Asplenia? No Hepatitis? No Sickle Cell Disease? No Arthritis? No Migraines? No Cataracts? No Glaucoma? No MRSA? No HIV? No TB? No Anxiety? Yes Depression? Yes Cancer? No More? 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/A Family History Family Hx Diabetes No CAD No Hypertension No Hyperlipidemia No Cancer No TB No Social History Smoking Hx Smoker: Former Smoker Tobacco: No Packs/day < 1 Pack Alcohol Alcohol: No Review of Systems All Other Systems Reviewed and Negative Gastrointestinal see HPI Psychiatric/Neurological denies see HPI, pre-existing deficit Physical Exam Vital Signs Vital Signs Date Time Temp Pulse Resp B/P Pulse O2 O2 Flow FiO2 Ox Delivery Rate 10/21 1408 97.6 57 18 101/43 100 10/21 1406 97.6 57 18 101/43 100 10/21 1249 97.6 62 18 93/57 100 General Appearance normal appearance, WD/WN, no apparent distress Eye Exam - bilateral eye normal exam, bilateral eye PERRL, bilateral eye EOMI Neck normal inspection, non-tender, supple, full range of motion Respiratory Status Yes: trachea midline, chest symmetrical, non tender chest. No: respiratory distress, tender on palpation, use of accessory muscles, pain on inspiration, pain on expiration, productive cough, non productive cough. Lung Sounds bilateral: normal breath sounds, lungs clear. Cardiovascular normal exam, regular rate/rhythm, no peripheral edema, no gallop, no JVD, no murmur, no rub, normal peripheral pulses Gastrointestinal normal bowel sounds, normal exam, non tender, soft, no organomegaly, no pulsatile mass, no guarding, no rebound Extremities non-tender, normal range of motion, normal inspection, normal capillary refill, no calf tenderness, no pedal edema Strength 5 Upper Ext (L), 5 Upper Ext (R), 5 Lower Ext (L), 5 Lower Ext (R) Neurologic alert, normal exam, no motor/sensory deficits, oriented x 3 (no tremor;slow speech/clear) Glascow Coma Scale Glascow Coma Scale Response Value EYE response: 4 Spontaneously 4 MOTOR response: 6 OBEYS 6 VERBAL response: 5 Oriented & Converses 5 Total 15 Skin intact, normal color, warm/dry Medical Decision Making LABS/Meds/Orders Pt receiving controlled substance in ED? No Results/Orders Laboratory Tests 10/21/17 1310: Sodium 126 L, Potassium 4.0, Chloride 94 L, Carbon Dioxide 24, BUN 12, Creatinine 0.7, Estimated Creat Clear 139, Estimated GFR (MDRD) 90, Glucose 108 H, Calcium 8.7, Total Bilirubin 0.5, AST 17, ALT 17, Alkaline Phosphatase 82, Total Protein 6.8, Albumin 3.6, Globulin 3.2, Albumin/Globulin Ratio 1.1, WBC 6.2, RBC 3.74 L, Hgb 11.5 L, Hct 35.0 L, MCV 93.4, RDW 12.4, Plt Count 164, MPV 8.2, Gran % 75.5, Gran # 4.7, Lymphocytes % 16.9, Monocytes % 6.7, Eosinophils % 0.7, Basophils % 0.2, Lymphocytes # 1.1, Monocytes # 0.4, Eosinophils # 0.0, Basophils # 0.0, PUBS MCHC 32.9, MCH 30.8, Superior Pending Current Medication Orders Sig/Noemi Start time Last Medication Dose Route Stop Time Status Admin Sodium Chloride 10 ML PRN PRN 10/21 1300 AC IV 10/22 1254 Orders Procedure Date/time Status 12 LEAD EKG-BRITTANY (INITIAL) 10/21 125 Active ELECTROCARDIOGRAM REQUEST 10/21 125 Active IV SALINE LOCK 10/21 125 Active SERUM , QUAL 10/21 1254 Complete LITHIUM 10/21 1254 Active CBC WITH AUTO DIFF 10/21 125 Complete CHEM 12 PROFILE 10/21 1254 Complete CM/EKG CM/EKG EKG rate, NSR, rhythm, no evid. of ischemic chgs, no ectopy, normal QRS, normal IN, normal EKG (NSR 88) Departure Departure Time of Disposition 1405 Disposition DC Home or Self Care(routine) Clinical Impression Primary Impression: Malaise Condition STABLE Patient Instructions Dizziness, Nonvertigo Additional Instructions continue current medications; lithium level is a sendout; follow up with primary care physician next week. You will be called if Superior level abnormal. Discharge Counseling Counseled pt/family regarding diagnosis, test results, medications/RX, home care, follow up needs ED Critical Care Critical Care No at 1410
--- NOTE | 2017-10-21 12:55 | Emergency Room Report ---
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 N Clinical Suspician of Infection? N Mental Status: 1 - Regular (Normal Baseline) Sepsis Risk:Low Sepsis Risk Have you (or family members/close friends) recently traveled outside the [place]? N If Yes, where/when: Have you had exposure to infectious disease within the past month? N TB? Other? Specify: Patient felt lightheaded and unwell today. Is in personal detention. Has schizophrenia and bipolar, taking multiple medications, states she had a large BM on arrival and now feeling better and wants something to eat and something to drink. No fever. No chest pain. No new hallucinations. No palpitations. ALLERGIES Coded Allergies: No Known Allergies (02/26/17) Home Medications Reported Medications BENZTROPINE MESYLATE (Benztropine 1MG Tab) 1 MG PO BID Lorazepam (Ativan 1MG) 1 MG PO TID Olanzapine 10 MG PO BID Perphenazine 4 MG PO BID Brenas Carbonate (Brenas Carbonate ER) 450 MG PO QHS Brenas Carbonate 300 MG PO DAILY Oxcarbazepine 300 MG PO TID Haloperidol (Haloperidol 5MG. Tablet) 5 MG PO TID History Medical History General CAD? No Angina: No [place]: No Hypertension? No Hyperlipidemia? No CHF? No DVT? No PE? No COPD? No Asthma? No Anemia? No GERD? No Gastric ulcers? No GI Bleed? No Hernia? No Thyroid Problems? No Hypothyroidism? No CVA? No Seizures? No Diabetes? No Renal Insuffiency? No End Stage Renal Disease? No UTI? Yes Stones? No BPH? No GB Disease: No Nephritic Syndrome? No Asplenia? No Hepatitis? No Sickle Cell Disease? No Arthritis? No Migraines? No Cataracts? No Glaucoma? No MRSA? No HIV? No TB? No Anxiety? Yes Depression? Yes Cancer? No More? 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 N/A Family History Family Hx Diabetes No CAD No Hypertension No Hyperlipidemia No Cancer No TB No Social History Smoking Hx Smoker: Former Smoker Tobacco: No Packs/day < 1 Pack Alcohol Alcohol: No Review of Systems All Other Systems Reviewed and Negative Gastrointestinal see HPI Psychiatric/Neurological denies see HPI, pre-existing deficit Physical Exam Vital Signs Vital Signs Date Time Temp Pulse Resp B/P Pulse O2 O2 Flow FiO2 Ox Delivery Rate 10/21 1408 97.6 57 18 101/43 100 10/21 1406 97.6 57 18 101/43 100 10/21 1249 97.6 62 18 93/57 100 General Appearance normal appearance, WD/WN, no apparent distress Eye Exam - bilateral eye normal exam, bilateral eye PERRL, bilateral eye EOMI Neck normal inspection, non-tender, supple, full range of motion Respiratory Status Yes: trachea midline, chest symmetrical, non tender chest. No: respiratory distress, tender on palpation, use of accessory muscles, pain on inspiration, pain on expiration, productive cough, non productive cough. Lung Sounds bilateral: normal breath sounds, lungs clear. Cardiovascular normal exam, regular rate/rhythm, no peripheral edema, no gallop, no JVD, no murmur, no rub, normal peripheral pulses Gastrointestinal normal bowel sounds, normal exam, non tender, soft, no organomegaly, no pulsatile mass, no guarding, no rebound Extremities non-tender, normal range of motion, normal inspection, normal capillary refill, no calf tenderness, no pedal edema Strength 5 Upper Ext (L), 5 Upper Ext (R), 5 Lower Ext (L), 5 Lower Ext (R) Neurologic alert, normal exam, no motor/sensory deficits, oriented x 3 (no tremor;slow speech/clear) Glascow Coma Scale Glascow Coma Scale Response Value EYE response: 4 Spontaneously 4 MOTOR response: 6 OBEYS 6 VERBAL response: 5 Oriented & Converses 5 Total 15 Skin intact, normal color, warm/dry Medical Decision Making LABS/Meds/Orders Pt receiving controlled substance in ED? No Results/Orders Laboratory Tests 10/21/17 1310: Sodium 126 L, Potassium 4.0, Chloride 94 L, Carbon Dioxide 24, BUN 12, Creatinine 0.7, Estimated Creat Clear 139, Estimated GFR (MDRD) 90, Glucose 108 H, Calcium 8.7, Total Bilirubin 0.5, AST 17, ALT 17, Alkaline Phosphatase 82, Total Protein 6.8, Albumin 3.6, Globulin 3.2, Albumin/Globulin Ratio 1.1, WBC 6.2, RBC 3.74 L, Hgb 11.5 L, Hct 35.0 L, MCV 93.4, RDW 12.4, Plt Count 164, MPV 8.2, Gran % 75.5, Gran # 4.7, Lymphocytes % 16.9, Monocytes % 6.7, Eosinophils % 0.7, Basophils % 0.2, Lymphocytes # 1.1, Monocytes # 0.4, Eosinophils # 0.0, Basophils # 0.0, PUBS MCHC 32.9, MCH 30.8, Brenas Pending Current Medication Orders Sig/Noemi Start time Last Medication Dose Route Stop Time Status Admin Sodium Chloride 10 ML PRN PRN 10/21 1300 AC IV 10/22 1254 Orders Procedure Date/time Status 12 LEAD EKG-BRITTANY (INITIAL) 10/21 125 Active ELECTROCARDIOGRAM REQUEST 10/21 125 Active IV SALINE LOCK 10/21 125 Active SERUM , QUAL 10/21 1254 Complete LITHIUM 10/21 1254 Active CBC WITH AUTO DIFF 10/21 125 Complete CHEM 12 PROFILE 10/21 1254 Complete CM/EKG CM/EKG EKG rate, NSR, rhythm, no evid. of ischemic chgs, no ectopy, normal QRS, normal NE, normal EKG (NSR 88) Departure Departure Time of Disposition 1405 Disposition DC Home or Self Care(routine) Clinical Impression Primary Impression: Malaise Condition STABLE Patient Instructions Dizziness, Nonvertigo Additional Instructions continue current medications; lithium level is a sendout; follow up with primary care physician next week. You will be called if Brenas level abnormal. Discharge Counseling Counseled pt/family regarding diagnosis, test results, medications/RX, home care, follow up needs ED Critical Care Critical Care No at 1410
[2017-10-21] MEDS ORDERED: LITHIUM CARBON300 MG PO (12:56)
[2017-10-21] MEDS ORDERED: OXCARBAZEPINE300 M2 PO ×2 (12:57→12:58)
[2017-10-21] MEDS ORDERED: HALOPERIDOL 5MG.5 MG PO (12:59)
[2017-10-21 13:19] LABS: HEMOGLOBIN 11.5 g/dL (12.2-16.2); LYMPH # 1.1 K/mm3 (0.7-4.5); LYMPH % 16.9 % (10-50.0)
--- OUTSIDE RECORDS SUMMARY | 2017-10-21 13:37 | External Medical Summary Rpt | CCD ---
Author Author , HALEY DE LEON Address Unknown Phone [email or web address] Care Team Providers Care Senior Manager Creative Services Name Role Phone [facility] Unavailable Unavailable [facility] E, [id number] # Unavailable [facility]available [id number], [id number] # [id number] [facility], Unavailable Unavailable [facility] Purpose Continuity of Care Document - 01-14-2010 through 2016 Problems Code Diagnosis DOS Provider Status F25.9 SCHIZOAFFEC TIVE DISORDER, UNSPECIFIED F31.9 BIPOLAR DISORDER, UNSPECIFIED N39.0 URINARY TRACT INFECTION, SITE NOT SPECIFIED R41.0 DISORIENTAT ION, UNSPECIFIED R41.82 ALTERED MENTAL STATUS, UNSPECIFIED Medications Na ND Rx Da Fi Fi Am Da Di Ph RX Ph St me C No te ll ll ou ys ag ar # ys at rm s nt no ma ic us Or Da si cy ia de te s n re d RI 50 10 10 0 60 30 WA 63 MA Ac SP 45 -2 -2 .0 YN 80 RC ti ER 80 7- 7- 00 ES 39 A ve ID 59 20 20 2 MCMAHON ON 36 11 11 PH LP E 0 AR IC 2 MA IA MG CY Y TA BL ET RI 50 10 10 0 1. 14 PR 63 MA Ac SP 45 -2 -2 00 YN 80 RC ti ER 80 7- 7- 0 ES 39 A ve DA 30 20 20 1 MCMAHON L 71 11 11 PH LP CO 1 AR IC NS MA IA TA CY Y 37 .5 MG SY R BE 00 10 10 0 60 30 PR 63 MA Ac NZ 60 -2 -2 .0 YN 80 RC ti TR 32 7- 7- 00 ES 38 A ve OP 43 20 20 9 MCMAHON IN 52 11 11 PH LP E 1 AR IC ME MA IA S CY Y 2 MG TA BL ET CA 49 10 10 0 16 28 PR 63 MA Ac BE 88 -2 -2 .0 YN 80 RC ti RG 40 7- 7- 00 ES 38 A ve OL 67 20 20 6 MCMAHON IN 31 11 11 PH LP E 4 AR IC 0. MA IA 5 CY Y MG TA BL ET CL 00 08 08 1 30 30 CA 71 NA Ac OZ 37 -1 -1 .0 PI 94 IR ti AP 80 5- 6- 00 TA 89 ve IN 86 20 20 L [facility]ON E 00 11 11 PH NI 10 1 AR L 0 MA K MG CY TA AN BL D ET ME DI CA L E DI 00 08 08 0 30 30 WA 63 MA Ac VA 37 -0 -0 .0 YN 70 RC ti LP 80 1- 2- 00 ES 65 A ve RO 47 20 20 4 MCMAHON EX 30 11 11 PH LP 1 AR IC SO MA IA D CY Y ER 50 0 MG TA B CL 00 06 06 0 28 14 CA 71 MA Ac OZ 37 -1 -1 .0 PI 40 RC ti AP 80 8- 8- 00 TA 87 A ve IN 86 20 20 L MC[facility]ON E 00 11 11 PH LP 10 1 AR IC 0 MA IA MG CY Y TA AN BL D ET ME DI CA L E CL 00 04 04 1 14 7 CA 70 NA Ac OZ 37 -1 -1 .0 PI 74 IR ti AP 80 2- 2- 00 TA 30 ve IN 82 20 20 L [facility]ON E 50 11 11 PH NI 25 1 AR L MA K MG CY TA AN BL D ET ME DI CA L E 00 04 04 2 30 30 CA 70 NA Ac 60 -1 -1 .0 PI 74 IR ti 33 2- 2- 00 TA 33 ve 44 20 20 L [facility]ON 32 11 11 PH NI 8 AR L MA K CY AN D ME DI CA L E CL 00 02 04 1 30 15 CA 70 NA Ac OZ 37 -1 -0 .0 PI 22 IR ti AP 80 7- 7- 00 TA 12 ve IN 86 20 20 L [facility] E 00 11 11 PH NI 10 1 AR L 0 MA K MG CY TA AN BL D ET ME DI CA L E CL 00 03 03 1 30 15 CA 70 NA Ac OZ 37 -0 -2 .0 PI 38 IR ti AP 80 4- 2- 00 TA 48 ve IN 86 20 20 L [facility]ON E 00 11 11 PH NI 10 1 AR L 0 MA K MG CY TA AN BL D ET ME DI CA L E CL 00 03 03 1 30 15 CA 70 NA Ac OZ 37 -0 -0 .0 PI 38 IR ti AP 80 4- 7- 00 TA 48 ve IN 86 20 20 L MC[facility]ON E 00 11 11 PH NI 10 1 AR L 0 MA K MG CY TA AN BL D ET ME DI CA L E 00 03 03 1 30 30 CA 70 NA Ac 60 -0 -0 .0 PI 38 IR ti 33 4- 7- 00 TA 49 ve 44 20 20 L MCMA[facility]ON 32 11 11 PH NI 8 AR L MA K CY AN D ME DI CA L E 00 12 12 1 90 30 CA 69 NA Ac 60 -2 -2 .0 PI 70 IR ti 33 2- 2- 00 TA 87 ve 44 20 20 L MCMA[facility]ON 32 10 10 PH NI 8 AR L MA K CY AN D ME DI CA L E CL 00 11 12 1 60 30 CA 69 NA Ac OZ 37 -1 -1 .0 PI 36 IR ti AP 80 5- 4- 00 TA 07 ve IN 86 20 20 L [facility] E 00 10 10 PH NI 10 1 AR L 0 MA K MG CY TA AN BL D ET ME DI CA L E CL 00 11 11 1 60 30 CA 69 NA Ac OZ 37 -1 -1 .0 PI 36 IR ti AP 80 5- 5- 00 TA 07 ve IN 86 20 20 L [facility]ON E 00 10 10 PH NI 10 1 AR L 0 MA K MG CY TA AN BL D ET ME DI CA L E 16 11 11 1 60 30 WA 63 NA Ac 71 -1 -1 .0 YN 41 IR ti 40 5- 5- 00 ES 01 ve 51 20 20 6 MCMAHON 30 10 10 PH NI 1 AR L MA K CY RI 50 09 09 2 2. 28 WA 63 BA Ac SP 45 -0 -2 00 YN 33 RC ti ER 80 9- 3- 0 ES 22 LA ve DA 30 20 20 6 Y L 61 10 10 PH JA CO 1 AR CQ NS MA UE TA CY LI NE 25 MG SY R RI 50 08 08 0 2. 28 WA 63 MA Ac SP 45 -0 -2 00 YN 30 RC ti ER 80 9- 5- 0 ES 06 A ve DA 30 20 20 1 MCMAHON L 61 10 10 PH LP CO 1 AR IC NS MA IA TA CY Y 25 MG SY R 16 08 08 0 30 15 WA 63 MA Ac 71 -0 -1 .0 YN 30 RC ti 40 9- 2- 00 ES 05 A ve 51 20 20 6 MC[facility]ON 30 10 10 PH LP 1 AR IC MA IA CY Y RI 50 08 08 0 30 15 WA 63 MA Ac SP 45 -0 -1 .0 YN 30 RC ti ER 80 9- 2- 00 ES 05 A ve ID 59 20 20 7 MCMAHON ON 36 10 10 PH LP E 0 AR IC 2 MA IA MG CY Y TA BL ET RI 50 06 06 10 2. 28 WA 63 BA Ac SP 45 -0 -0 00 YN 22 RC ti ER 80 8- 9- 0 ES 84 LA ve DA 30 20 20 4 Y L 61 10 10 PH JA CO 1 AR CQ NS MA UE TA CY LI NE 25 MG SY R CA 49 06 06 0 16 30 WA 63 BA Ac BE 88 -0 -0 .0 YN 22 RC ti RG 40 4- 4- 00 ES 48 LA ve OL 67 20 20 9 Y IN 31 10 10 PH JA E 4 AR CQ 0. MA UE 5 CY LI MG NE TA BL ET DI 00 06 06 0 30 30 WA 63 BA Ac PH 60 -0 -0 .0 YN 22 RC ti EN 33 4- 4- 00 ES 49 LA ve HY 34 [address] 03 10 10 PH JA AM 2 AR CQ IN MA UE E CY LI 50 NE MG CA PS UL E AB 59 06 06 0 30 30 WA 63 BA Ac IL 14 -0 -0 .0 YN 22 RC ti IF 80 4- 4- 00 ES 49 LA ve Y 00 20 20 2 Y 15 91 10 10 PH JA 3 AR CQ MG MA UE CY LI TA NE BL ET DI 00 04 04 0 30 30 WA 63 MA Ac PH 60 -1 -1 .0 YN 16 RC ti EN 33 6- 6- 00 ES 73 A ve HY 34 [address] 03 10 10 PH LP AM 2 AR IC IN MA IA E CY Y 50 MG CA PS UL E RI 50 04 04 0 60 30 WA 63 MA Ac SP 45 -1 -1 .0 YN 16 RC ti ER 80 6- 6- 00 ES 73 A ve ID 59 20 20 0 MCMAHON ON 36 10 10 PH LP E 0 AR IC 2 MA IA MG CY Y TA BL ET CA 16 04 04 0 8. 28 PR 84 MA Ac BE 25 -1 -1 00 LG 02 RC ti RG 20 5- 5- 0 RE 65 A ve OL 53 20 20 EN MCMAHON IN 60 10 10 S LP E 8 #5 IC 0. 57 IA 5 4 Y MG # 55 TA 74 BL ET IN 50 02 03 0 1. 30 PR 63 No Ac VE 45 -2 -2 50 YN 10 t ti GA 80 4- 2- 0 ES 36 Av ve 56 20 20 3 ai MCMAHON [address] 1 AR bl EN MA e NA CY 23 4 MG /1 .5 ML DI 00 03 03 1 60 30 WA 63 BA Ac VA 37 -1 -1 .0 YN 12 RC ti LP 80 0- 1- 00 ES 28 LA ve RO 47 20 20 4 Y EX 30 10 10 PH JA 1 AR CQ SO MA UE D CY LI ER NE 50 0 MG TA B IN 50 03 03 0 30 30 WA 63 BA Ac VE 45 -1 -1 .0 YN 12 RC ti GA 80 0- 1- 00 ES 28 LA ve 55 20 20 6 Y ER 20 10 10 PH JA 9 1 AR CQ MA UE MG CY LI NE TA BL ET 16 02 03 0 60 30 WA 63 No Ac 71 -2 -0 .0 YN 11 t ti 40 4- 9- 00 ES 93 Av ve 51 20 20 4 ai 30 10 10 PH la 1 AR bl MA e CY IN 50 02 03 0 30 30 WA 63 No Ac VE 45 -2 -0 .0 YN 11 t ti GA 80 4- 4- 00 ES 36 Av ve 55 20 20 9 ai ER 10 10 10 PH la 6 1 AR bl MA e MG CY TA BL ET Results Labs Lab Lab Date Result Refere Interp Status Commen Order Detail nces retati t Range on CBC w auto diff (10-21-2017 13:10) Automat = 32.9 31.8-35 complet ed 017 g/dl .4 ed erythro 13:10 cyte mean corpusc ular h Automat = 93.4 82.2-97 complet ed 017 fl .8 ed erythro 13:10 cyte mean corpusc ular v Absolut = 0.4 0.1-1.0 complet e 017 K/mm3 ed monocyt 13:10 e count Gem % = 6.7 % 1.7-9.3 complet 017 ed 13:10 Automat = 8.2 7.4-10. complet ed 017 fl 4 ed blood 13:10 platele t mean volume tahira Blood = 164 142-424 complet platele 017 K/mm3 ed t count 13:10 Red = 3.74 4.2-5.4 complet blood 017 M/mm3 ed cell 13:10 count Automat = 12.4 11.5-17 complet ed 017 % .5 ed erythro 13:10 cyte distrib ution width Blood = 6.2 4.8-10. complet leukocy 017 K/MM3 8 ed shreya 13:10 count (number /volume ) Automat = 0.0 0-0.2 complet ed 017 K/MM3 ed blood 13:10 basophi l count (count/ vo Baso % = 0.2 % 0.1-2.0 complet 017 ed 13:10 Automat = 0.0 0.0-0.4 complet ed 017 K/mm3 ed blood 13:10 eosinop hil count Automat = 0.7 % 0.1-12. complet ed 017 0 ed blood 13:10 eosinop hils/10 0 leukocy t Blood = 4.7 1.8-7.8 complet granulo 017 K/mm3 ed cytes 13:10 automat ed count (numb Granulo = 75.5 37.0-80 complet cyte 017 % .0 ed percent 13:10 age Blood = 35.0 37.0-47 complet hematoc 017 % .0 ed rit 13:10 (volume fractio n) Blood = 11.5 12.2-16 complet hemoglo 017 g/dL .2 ed bin 13:10 measure ment (mass/v olum Absolut = 1.1 0.7-4.5 complet e 017 K/mm3 ed lymphoc 13:10 yte count Lymphoc = 16.9 10-50.0 complet yte 017 % ed count, 13:10 blood, automat ed Mean = 30.8 27-31.2 complet corpusc 017 pg ed ular 13:10 hemoglo bin (MCH) determ
--- OUTSIDE RECORDS SUMMARY | 2017-10-21 13:37 | External Medical Summary Rpt | CCD ---
Author Author , HALEY DE LEON Address Unknown Phone [email or web address] Care Team Providers Care Protection Specialist Name Role Phone [facility] Unavailable Unavailable MEDICAL E, [id number] # Unavailable Unavailable [id number], [id number] # [id number] [facility], Unavailable Unavailable [facility] Purpose Continuity of Care Document - [...] RI 50 10 10 0 1. 14 MO 63 MA Ac SP 45 -2 -2 00 YN 80 RC ti ER 80 7- 7- 0 ES 39 A ve DA 30 20 20 1 MCMAHON L 71 11 11 PH LP CO 1 AR IC NS MA IA TA CY Y 37 .5 MG SY R BE 00 10 10 0 60 30 MO 63 MA Ac NZ 60 -2 -2 .0 YN 80 RC ti TR 32 7- 7- 00 ES 38 A ve OP 43 20 20 9 MCMAHON IN 52 11 11 PH LP E 1 AR IC ME MA IA S CY Y 2 MG TA BL ET CA 49 10 10 0 16 28 MO 63 MA Ac BE 88 -2 -2 [...] CA 16 04 04 0 8. 28 MO 84 MA Ac BE 25 -1 -1 00 LG 02 RC ti RG 20 5- 5- 0 RE 65 A ve OL 53 20 20 EN MCMAHON IN 60 10 10 S LP E 8 #5 IC 0. 57 IA 5 4 Y MG # 55 TA 74 BL ET IN 50 02 03 0 1. 30 MO 63 No Ac VE 45 -2 -2 [...] 017 K/mm3 ed monocyt 13:10 e count [place] % = 6.7 % 1.7-9.3 complet 017 [...]
--- OUTSIDE RECORDS SUMMARY | 2017-10-21 13:38 | External Medical Summary Rpt | CCD ---
Author Author , HALEY Organization HALEY Address Unknown Phone [email or web address] Immunization Name Date Rout CVX Reac Dose Comm Prov Is Faci e tion ent ider Refu lity Give sed n Td 10-1 9 999 Hist H137 No H137 (osmany 1-20 ori lt), 02 al Info adso rmat rbed ion - Sour ce Unsp ecif ied
--- OUTSIDE RECORDS SUMMARY | 2017-10-21 13:38 | External Medical Summary Rpt | CCD ---
Demographics Preferred Language Tamazight Marital Status Unknown Christian Affiliation Unknown Race Unknown Ethnic Group Unknown Author Author , HALEY DE LEON Address Unknown Phone [email or web address] Care Team Providers Care Business Partner Name Role Phone [facility] Unavailable Unavailable MEDICAL E, [id number] # Unavailable Unavailable [id number], [id number] # [id number] [facility], Unavailable Unavailable [facility] Purpose Continuity of Care Document - 01-14-2010 through 2016 Medications Na ND Rx Da Fi Fi Am Da Di Ph RX Ph St me C No te ll ll ou ys ag ar # ys at rm s nt no ma ic us Or Da si cy ia de te s n re d CA 49 10 10 0 16 28 WA 63 MA Ac BE 88 -2 -2 .0 YN 80 RC ti RG 40 7- 7- 00 ES 38 A ve OL 67 20 20 6 MCMAHON IN 31 11 11 PH LP E 4 AR IC 0. MA IA 5 CY Y MG TA BL ET BE 00 10 10 0 60 30 WA 63 MA Ac NZ 60 -2 -2 .0 YN 80 RC ti TR 32 7- 7- 00 ES 38 A ve OP 43 20 20 9 MCMAHON IN 52 11 11 PH LP E 1 AR IC ME MA IA S CY Y 2 MG TA BL ET RI 50 10 10 0 1. 14 WA 63 MA Ac SP 45 -2 -2 00 YN 80 RC ti ER 80 7- 7- 0 ES 39 A ve DA 30 20 20 1 MC[facility]ON L 71 11 11 PH LP CO 1 AR IC NS MA IA TA CY Y 37 .5 MG SY R RI 50 10 10 0 60 30 WA 63 MA Ac SP 45 -2 -2 .0 YN 80 RC ti ER 80 7- 7- 00 ES 39 A ve ID 59 20 20 2 MCMAHON ON 36 11 11 PH LP E 0 AR IC 2 MA IA MG CY Y TA BL ET CL 00 08 08 [...] RI 50 09 09 2 2. 28 [place] 63 BA Ac SP 45 -0 -2 00 YN 33 RC ti ER 80 9- 3- 0 ES 22 LA ve DA 30 20 20 6 Y L 61 10 10 PH JA CO 1 AR CQ NS MA UE TA CY LI NE 25 MG SY R RI 50 08 08 0 2. 28 [place] 63 MA Ac SP 45 -0 -2 00 YN 30 RC ti ER 80 9- 5- 0 ES 06 A ve DA 30 20 20 1 MCMAHON L 61 10 10 PH LP CO 1 AR IC NS MA IA TA CY Y 25 MG SY R 16 08 08 0 30 15 WV 63 MA Ac 71 -0 -1 .0 YN 30 RC ti 40 9- 2- 00 ES 05 A ve 51 20 20 6 MC[facility]ON 30 10 10 PH LP 1 AR IC MA IA CY Y RI 50 08 08 0 30 15 WV 63 MA Ac SP 45 -0 -1 .0 YN 30 RC ti ER 80 9- 2- 00 ES 05 A ve ID 59 20 20 7 MCMAHON ON 36 10 10 PH LP E 0 AR IC 2 MA IA MG CY Y TA BL ET RI 50 06 06 10 2. 28 [place] 63 BA Ac SP 45 -0 -0 [...] UE CY LI TA NE BL ET RI 50 04 04 0 60 30 WV 63 MA Ac SP 45 -1 -1 .0 YN 16 RC ti ER 80 6- 6- 00 ES 73 A ve ID 59 20 20 0 MCMAHON ON 36 10 10 PH LP E 0 AR IC 2 MA IA MG CY Y TA BL ET DI 00 04 04 0 30 30 WA 63 MA Ac PH 60 -1 -1 .0 YN 16 RC ti EN 33 6- 6- 00 ES 73 A ve HY 34 [address] 03 10 10 PH LP AM 2 AR IC IN MA IA E CY Y 50 MG CA PS UL E CA 16 04 04 0 8. 28 WV 84 MA Ac BE 25 -1 -1 00 LG 02 RC ti RG 20 5- 5- 0 RE 65 A ve OL 53 20 20 EN MCMAHON IN 60 10 10 S LP E 8 #5 IC 0. 57 IA 5 4 Y MG # 55 TA 74 BL ET IN 50 02 03 0 1. 30 WA 63 No Ac VE 45 -2 -2 [...]
--- OUTSIDE RECORDS SUMMARY | 2017-10-21 13:38 | External Medical Summary Rpt | CCD ---
Author Author , HALEY Organization [facility] Address Unknown Phone [email or web address] [email or web address] Name Date Rout CVX Reac Dose Comm Prov Is Faci e tion ent ider Refu lity Give sed n Td 10-1 9 999 Hist H137 No H137 (osmany 1-20 ori lt), 02 al Info adso rmat rbed ion - Sour ce Unsp ecif ied
--- OUTSIDE RECORDS SUMMARY | 2017-10-21 13:38 | External Medical Summary Rpt | CCD ---
Demographics Preferred Language Frisian Marital Status Unknown Roman Catholic Affiliation Unknown Race Unknown Ethnic Group Unknown Author Author , HALEY DE LEON Address Unknown Phone [email or web address] Team Providers Care Network Engineer Name Role Phone [facility] Unavailable Unavailable MEDICAL E, [id number] # Unavailable Unavailable [phone], [id number] # [id number] [facility], Unavailable Unavailable [facility] Purpose Continuity of [...] 07 ve IN 86 20 20 L MCAMHON E 00 10 10 PH NI 10 [...] RI 50 09 09 2 2. 28 MA 63 BA Ac SP 45 -0 -2 00 YN 33 RC ti ER 80 9- 3- 0 ES 22 LA ve DA 30 20 20 6 Y L 61 10 10 PH JA CO 1 AR CQ NS MA UE TA CY LI NE 25 MG SY R RI 50 08 08 0 2. 28 MA 63 MA Ac SP 45 -0 -2 00 YN 30 RC ti ER 80 9- 5- 0 ES 06 A ve DA 30 20 20 1 MCMAHON L 61 10 10 PH LP CO 1 AR IC NS MA IA TA CY Y 25 MG SY R 16 08 08 0 30 15 MA 63 MA Ac 71 -0 -1 .0 YN 30 RC ti 40 9- 2- 00 ES 05 A ve 51 20 20 6 MCMA[facility]ON 30 10 10 PH LP 1 AR IC MA IA CY Y RI 50 08 08 0 30 15 MA 63 MA Ac SP 45 -0 -1 .0 YN 30 RC ti ER 80 9- 2- 00 ES 05 A ve ID 59 20 20 7 MCMAHON ON 36 10 10 PH LP E 0 AR IC 2 MA IA MG CY Y TA BL ET RI 50 06 06 10 2. 28 MA 63 BA Ac SP 45 -0 -0 [...] RI 50 04 04 0 60 30 MA 63 MA Ac SP 45 -1 -1 [...] CA 16 04 04 0 8. 28 MA 84 MA Ac BE 25 -1 -1 [...]
[2017-10-21 14:08] VITALS: BP 101/43
== END 2017-10-21 15:09 | disposition home or self-care (01) ==
LOC: ER 12:49
PROVIDERS: Emergency Medicine
DX: R42 Dizziness and giddiness (principal); R53.83 Other fatigue; Z87.891 Personal history of nicotine dependence; F41.8 Other specified anxiety disorders; F20.81 Schizophreniform disorder